=== PATIENT | male | born 1935 | race Caucasian/White ===

== ENCOUNTER 2023-08-07 19:34 | Observation (INO) | payer MEDICARE ==
[2023-08-07] MEDS ORDERED: SODIUM CHLORIDE 0.9% 500 ML 500 ML IV ONE (20:04)
--- NOTE | 2023-08-07 20:05 | ED ---
General Adult HPI - General Chief complaint: Neuro Symptoms/Deficit Stated complaint: Neuro symptoms Time Seen by Provider: 08/07/23 19:54 Source: patient, EMS, RN notes reviewed, old records reviewed Mode of arrival: EMS Limitations: no limitations - History of Present Illness Initial comments: 87-year-old male presents for evaluation of facial droop and slurred speech. Symptoms began approximately 3 hours prior and according to EMS the slurred spee ch only lasted 2 minutes. Symptoms are completely resolved at the time of arrival. The exact timing is not known by the patient and family is not available at the initial evaluation to confirm the time course. Patient himself has no complaints. No headache. No chest pain. No focal numbness or weakness. Speech is clear. No prior history of TIA or CVA. - Related Data Allergies Allergy/AdvReac Type Severity Reaction Status Date / Time No Known Allergies Allergy Verified 08/07/23 19:51 Review of Systems ROS Statement: Those systems with pertinent positive or pertinent negative responses have been documented in the HPI. ROS Other: All systems not noted in ROS Statement are negative. Past Medical History Additional Past Medical History / Comment(s): BPH History of Any Multi-Drug Resistant Organisms: None Reported Additional Past Surgical History / Comment(s): eyelids Past Psychological History: No Psychological Hx Reported Smoking Status: Former smoker Past Alcohol Use History: Occasional Past Drug Use History: None Reported General Exam Limitations: no limitations General appearance: alert, in no apparent distress Head exam: Present: atraumatic, normocephalic Eye exam: Present: normal appearance, PERRL ENT exam: Present: normal exam Neck exam: Present: normal inspection Respiratory exam: Present: normal lung sounds bilaterally. Absent: respiratory distress, wheezes Cardiovascular Exam: Present: regular rate, normal rhythm GI/Abdominal exam: Present: soft. Absent: distended, tenderness Extremities exam: Present: normal inspection, normal capillary refill Neurological exam: Present: alert, oriented X3, CN II-XII intact, other (NIH is 0). Absent: motor sensory deficit Psychiatric exam: Present: normal affect, normal mood Skin exam: Present: warm, dry, intact Course Vital Signs 08/07/23 08/07/23 08/07/23 19:44 20:30 21:00 Temperature 97.9 F Pulse Rate 74 81 Respiratory 18 Rate Blood Pressure 204/89 197/94 212/83 O2 Sat by Pulse 97 95 Oximetry Medical Decision Making - Medical Decision Making Was pt. sent in by a medical professional or institution (STEVE Qureshi, PETROLEUM ANALYST, urgent care, hospital, or custodial...) When possible be specific @ -No Did you speak to anyone other than the patient for history (EMS, parent, family, police, friend...)? What history was obtained from this source @ -No Did you review nursing and triage notes (agree or disagree)? Why? @ -I reviewed and agree with nursing and triage notes Were old charts reviewed (outside hosp., previous admission, EMS record, old EKG, old radiological studies, urgent care reports/EKG's, custodial records)? Report findings @ -No old charts were reviewed Differential Diagnosis (chest pain, altered mental status, abdominal pain women, abdominal pain men, vaginal bleeding, weakness, fever, dyspnea, syncope, headache, dizziness, GI bleed, back pain, seizure, CVA, palpatations, mental health, musculoskeletal)? @ -Differential CVA Ischemic stroke, hemorrhagic stroke, brain tumor, atypical migraine, Wernicke's encephalopathy, seizure, multiple sclerosis, meningitis, encephalitis, hypoglycemia, Guillain-Doss, electrolytes disturbance, myasthenia gravis.... This is not meant to be an all-inclusive list EKG interpreted by me (3pts min.). @ -[Sinus rhythm with PAC rate is 73, VT interval 251, QRS duration 104, QTC [address] segment elevation. X-rays interpreted by me (1pt min.). @ -None done CT interpreted by me (1pt min.). @ -[CT brain negative for intracranial hemorrhage or mass effect. U/S interpreted by me (1pt. min.). @ -None done What testing was considered but not performed or refused? (CT, X-rays, U/S, labs)? Why? @ -None What meds were considered but not given or refused? Why? @ -None Did you discuss the management of the patient with other professionals (professionals i.e. STEVE Qureshi, PETROLEUM ANALYST, lab, RT, psych nurse, nursing home social worker, shoulder boner, teacher, airfield engineer officer, major case detective)? Give summary @ -[EMH Was smoking cessation discussed for >3mins.? @ -No Was critical care preformed (if so, how long)? @ -No Were there social determinants of health that impacted care today? How? (Homelessness, low income, unemployed, alcoholism, drug addiction, transportation, low edu. Level, literacy, decrease access to med. care, long-term, rehab)? @ -No Was there de-escalation of care discussed even if they declined (Discuss DNR or withdrawal of care, Hospice)? DNR status @ -No What co-morbidities impacted this encounter? (DM, HTN, Smoking, COPD, CAD, Cancer, CVA, ARF, Chemo, Hep., AIDS, mental health diagnosis, sleep apnea, morbid obesity)? @ -None Was patient admitted / discharged? Hospital course, mention meds given and route, prescriptions, significant lab abnormalities, going to OR and other pertinent info. @87-year-old male with facial droop and slurred speech. Symptoms resolved prior to arrival. Patient's NIH is 0. CT brain negative for intracranial hemorrhage or mass effect. Patient has normal laboratory testing. He is in sinus rhythm. He remains asymptomatic with an NIH is 0 on the emergency department. He is given an aspirin. He will be admitted for TIA workup. Undiagnosed new problem with uncertain prognosis? @ [N] Drug Therapy requiring intensive monitoring for toxicity (Heparin, Nitro, Insulin, Cardizem)? @ [N] Were any procedures done? @ [N] Diagnosis/symptom? @ -TIA Acute, or Chronic, or Acute on Chronic? @ acute Uncomplicated (without systemic symptoms) or Complicated (systemic symptoms)? @ -default Side effects of treatment? @ -No Exacerbation, Progression, or Severe Exacerbation? @ -No Poses a threat to life or bodily function? How? (Chest pain, [place], [place], pneumonia, PE, COPD, DKA, ARF, appy, cholecystitis, CVA, Diverticulitis, Homicidal, Suicidal, threat to staff... and all critical care pts) @ -[yes CVA - Lab Data Result diagrams: 08/07/23 20:09 08/07/23 20:09 Lab Results 08/07/23 08/07/23 08/07/23 Range/Units 20: 20:09 20:09 WBC 6.3 (3.8-10.6) k/uL RBC 3.66 L (4.30-5.90) m/uL Hgb 12.6 L (13.0-17.5) gm/dL Hct 38.1 L (39.0-53.0) % MCV 103.9 H (80.0-100.0) fL MCH 34.5 (25.0-35.0) pg MCHC 33.2 (31.0-37.0) g/dL RDW 13.3 (11.5-15.5) % Plt Count 344 (150-450) k/uL MPV 7.7 Neutrophils % 56 % Lymphocytes % 29 % Monocytes % 9 % Eosinophils % 2 % Basophils % 0 % Neutrophils # 3.6 (1.3-7.7) k/uL Lymphocytes # 1.8 (1.0-4.8) k/uL Monocytes # 0.6 (0-1.0) k/uL Eosinophils # 0.1 (0-0.7) k/uL Basophils # 0.0 (0-0.2) k/uL Macrocytosis Slight PT 11.0 (10.0-12.5) sec INR 1.0 (<1.2) APTT 24.5 (22.0-30.0) sec Sodium 139 (137-145) mmol/L Potassium 4.7 (3.5-5.1) mmol/L Chloride 103 (98-107) mmol/L Carbon Dioxide 27 (22-30) mmol/L Anion Gap 9 mmol/L BUN 21 H (9-20) mg/dL Creatinine 0.86 (0.66-1.25) mg/dL Est GFR (CKD-EPI)AfAm 89 (>60 ml/min/1.73 sqM) Est GFR (CKD-EPI)NonAf 77 (>60 ml/min/1.73 sqM) Glucose 120 H (74-99) mg/dL Calcium 9.3 (8.4-10.2) mg/dL Total Bilirubin 0.4 (0.2-1.3) mg/dL AST 26 (17-59) U/L ALT 20 (4-49) U/L Alkaline Phosphatase 109 (38-126) U/L Creatine Kinase 36 L (55-170) U/L Troponin I (0.000-0.034) ng/mL Total Protein 6.8 (6.3-8.2) g/dL Albumin 4.0 (3.5-5.0) g/dL 08/07/23 Range/Units 20:09 WBC (3.8-10.6) k/uL RBC (4.30-5.90) m/uL Hgb (13.0-17.5) gm/dL Hct (39.0-53.0) % MCV (80.0-100.0) fL MCH (25.0-35.0) pg MCHC (31.0-37.0) g/dL RDW (11.5-15.5) % Plt Count (150-450) k/uL MPV Neutrophils % % Lymphocytes % % Monocytes % % Eosinophils % % Basophils % % Neutrophils # (1.3-7.7) k/uL Lymphocytes # (1.0-4.8) k/uL Monocytes # (0-1.0) k/uL Eosinophils # (0-0.7) k/uL Basophils # (0-0.2) k/uL Macrocytosis PT (10.0-12.5) sec INR (<1.2) APTT (22.0-30.0) sec Sodium (137-145) mmol/L Potassium (3.5-5.1) mmol/L Chloride (98-107) mmol/L Carbon Dioxide (22-30) mmol/L Anion Gap mmol/L BUN (9-20) mg/dL Creatinine (0.66-1.25) mg/dL Est GFR (CKD-EPI)AfAm (>60 ml/min/1.73 sqM) Est GFR (CKD-EPI)NonAf (>60 ml/min/1.73 sqM) Glucose (74-99) mg/dL Calcium (8.4-10.2) mg/dL Total Bilirubin (0.2-1.3) mg/dL AST (17-59) U/L ALT (4-49) U/L Alkaline Phosphatase (38-126) U/L Creatine Kinase (55-170) U/L Troponin I 0.017 (0.000-0.034) ng/mL Total Protein (6.3-8.2) g/dL Albumin (3.5-5.0) g/dL Disposition Clinical Impression: Transient cerebral ischemia Disposition: ADMITTED IP TO THIS HOSP Condition: Stable Is patient prescribed a controlled substance at d/c from ED?: No Referrals: None,Stated [REFERRING] - 1-2 days Time of Disposition: 22:06
[2023-08-07 20:46] LABS: Basophils % (A) 0 %; Eosinophils # (A) 0.1 k/uL (0-0.7); Eosinophils % (A) 2 %; HCT 38.1 % (39.0-53.0); HGB 12.6 gm/dL (13.0-17.5); Lymphocytes # (A) 1.8 k/uL (1.0-4.8); Lymphocytes % (A) 29 %; MCH 34.5 pg (25.0-35.0); MCHC 33.2 g/dL (31.0-37.0); MCV 103.9 fL (80.0-100.0); Macrocytosis Slight; Mean Platelet Volume 7.7; Monocytes # (A) 0.6 k/uL (0-1.0); Monocytes % (A) 9 %; Neutrophils # (A) 3.6 k/uL (1.3-7.7); Neutrophils % (A) 56 %; Platelet Count 344 k/uL (150-450); RBC 3.66 m/uL (4.30-5.90); RDW 13.3 % (11.5-15.5); WBC 6.3 k/uL (3.8-10.6)
--- NOTE | 2023-08-07 20:54 | CT ---
EXAMINATION TYPE: CT brain wo con DATE OF EXAM: 08/07/2023 COMPARISON: None HISTORY: ams CT DLP: 1113.[address] of the brain was performed. The ventricles, basal cisterns and sulci overlying the cerebral convexities demonstrate mild enlargem ent. There is no evidence for intracranial hemorrhage or sulcal effacement. There is decreased attenuation about the periventricular white matter and deep white matter of both c erebral hemispheres, compatible with chronic small vessel ischemia. Differential diagnosis does inclu de demyelination. No mass effects are seen.No midline shift. Osseous calvarium is intact. If symptoms persist consider MRI. IMPRESSION: 1. Age related atrophic and chronic small vessel ischemic change without acute intracranial process s een at this time.
[2023-08-07 21:01] LABS: ALT 20 U/L (4-49); AST 26 U/L (17-59); African American GFR (CKD) 89 (>60 ml/min/1.73 sqM); Alkaline Phosphatase 109 U/L (38-126); Anion Gap 9 mmol/L; Blood Urea Nitrogen 21 mg/dL (9-20); Calcium 9.3 mg/dL (8.4-10.2); Carbon Dioxide 27 mmol/L (22-30); Chloride 103 mmol/L (98-107); Creatine Kinase 36 U/L (55-170); Glucose 120 mg/dL (74-99); Non-African American GFR(CKD) 77 (>60 ml/min/1.73 sqM); Potassium 4.7 mmol/L (3.5-5.1); Sodium 139 mmol/L (137-145); Total Bilirubin 0.4 mg/dL (0.2-1.3); Total Protein 6.8 g/dL (6.3-8.2)
[2023-08-07 21:02] LABS: Partial Thromboplastin Time 24.5 sec (22.0-30.0)
[2023-08-07] MEDS ORDERED: ASPIRIN 325 MG TAB PO STA (21:56)
--- NOTE | 2023-08-07 22:00 | XR ---
EXAM: XR chest 1V portable CLINICAL INDICATION:Male, 87 years old with history of altered mental status; PHH COMPARISON: None. TECHNIQUE: Chest single view. FINDINGS: Lines/tubes/devices: No indwelling lines. EKG leads and other extrinsic structures over the chest. Cardiomediastinum: Cardiac silhouette appears mildly enlarged. Atherosclerotic calcifications of the aorta. Mediastinal silhouette otherwise unremarkable. Vasculature: Mild central congestion. Mildly increased interstitial markings can be related to conge stion or infiltrates. Lungs/pleura: No consolidation, sizeable effusion, or visible pneumothorax. Bones/soft tissues: Bony thorax appears grossly intact with degenerative changes of the spine and shoulders noted. Region al soft tissues appear unremarkable. IMPRESSION: Cardiomegaly with mild pulmonary vascular congestion and edema. Correlate clinically for CHF.
[2023-08-07] MEDS: SODIUM CHLORIDE 0.9% 1,000 ML IV SCH (22:16)
--- NOTE | 2023-08-08 07:15 | US ---
EXAMINATION TYPE: US carotid duplex BILAT DATE OF EXAM: 08/07/2023 COMPARISON: NONE CLINICAL INDICATION: Male, 87 years old with history of Stenosis; Altered mental status TECHNIQUE: Carotid duplex ultrasound examination. Indirect Doppler criteria was utilized. 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 Increased velocities bilateral ICA's and l eft ECA IMPRESSION: 50-69% diameter reduction right ICA. Criteria for Assigning % of Stenosis / Diameter reduction (Estimation based on the indirect measurements of the internal carotid artery velocities (ICA PSV). 1. Normal (no stenosis)=ICA PSV < 125 cm/s: ratio < 2.0: ICA EDV<40 cm/s. 2. Less than 50% stenosis=ICA PSV < 125 cm/s: ratio < 2.0: ICA EDV<40 cm/s. 3. 50 to 69% stenosis=ICA PSV of 125 to 230 cm/s: ration 2.0 ? 4.0: ICA EDV 40-100 cm/s. 4. Greater than 70% stenosis to near occlusion= ICA PSV > 230 cm/s: ratio > 4.0: ICA EDV > 100 cm/s. 5. Near occlusion= ICA PSV velocities may be low or undetectable: variable ratio and ICA EDV. 6. Total occlusion=unable to detect flow.
[2023-08-08] MEDS: ASPIRIN 325 MG TAB PO SCH (08:16)
[2023-08-08] MEDS: hydrALAZINE HCL 20 MG/ML 1 ML VIAL IVP PRN ×2 (09:38→19:33)
[2023-08-08 09:51] LABS: Chol/HDL Ratio 2.71 Ratio; LDL Cholesterol,Calculated 77.4 mg/dL (0.0-131.0)
[2023-08-08] MEDS ORDERED: LABETALOL 5 MG/ML VIAL MDV IVP STA (10:49)
[2023-08-08] MEDS: amLODIPine 2.5 MG TAB PO SCH (12:01)
--- NOTE | 2023-08-08 13:15 | P.HPIM ---
History of Present Illness H&P Date: 08/08/23 History of present illness; patient is a 87 year old gentleman with no signific ant past medical history brought to the ER for slurred speech and facial droop. According to the EMS records, patient's symptoms started 3 hours prior to arrival of EMS and by the time EMS arrived, symptoms lasted a few minutes and totally resolved. There was no documented weakness of any extremity. No loss of sensations in any extremity. Denied any recent fall. Denied any palpitation. There was no complaint of lightheadedness or dizziness. No complaint of loss of consciousness. EMS brought the patient to the ER Initial lab work done in the ER showed WBC 6.3, hemoglobin 12.6, platelet count 344, sodium 139 potassium 4.7, BUN 21, creatinine 0.86, AST 26, ALT 20, troponin 0.017 EKG done in the ER heart rate of 73, normal sinus rhythm, no T-wave inversion or ST segment depression in leads Chest x-ray done in the ER showed cardiomegaly with mild pulmonary vascular congestion and edema CT brain done showed age-related chronic small vessel ischemic change without acute cranial process Patient admitted to medicine service REVIEW OF SYSTEMS: CONSTITUTIONAL: No fever, no malaise, no fatigue. HEENT: No recent visual problems or hearing problems. Denied any sore throat. CARDIOVASCULAR: No chest pain, orthopnea, PND, no palpitations, no syncope. PULMONARY: No shortness of breath, no cough, no hemoptysis. GASTROINTESTINAL: No diarrhea, no nausea, no vomiting, no abdominal pain. NEUROLOGICAL: As documented above HEMATOLOGICAL: Denies any bleeding or petechiae. GENITOURINARY: Denies any burning micturition, frequency, or urgency. MUSCULOSKELETAL/RHEUMATOLOGICAL: Denies any joint pain, swelling, or any muscle pain. ENDOCRINE: Denies any polyuria or polydipsia. The rest of the 14-point review of systems is negative. PHYSICAL EXAMINATION: GENERAL: The patient is alert and oriented x3, not in any acute distress. Well developed, well nourished. HEENT: Pupils are round and equally reacting to light. EOMI. No scleral icterus. No conjunctival pallor. Normocephalic, atraumatic. No pharyngeal erythema. No thyromegaly. CARDIOVASCULAR: S1 and S2 present. No murmurs, rubs, or gallops. PULMONARY: Chest is clear to auscultation, no wheezing or crackles. ABDOMEN: Soft, nontender, nondistended, normoactive bowel sounds. No palpable organomegaly. MUSCULOSKELETAL: No joint swelling or deformity. EXTREMITIES: No cyanosis, clubbing, or pedal edema. NEUROLOGICAL: Gross neurological examination did not reveal any focal deficits. SKIN: No rashes. Assessment and plan TIA Hypertension Monitor vital signs Monitor CBC Monitor CMP Continue telemetry monitoring Continue neuro checks Ordered 2-D echo Ordering MRI brain Daily aspirin Lipid panel HbA1c levels ordered TSH levels ordered Consult neurology Labs and medication were reviewed.. Continue same treatment. Continue with symptomatic treatment. Resume home medication. Monitor labs and vitals. DVT and GI prophylaxis. Further recommendations as per clinical course of the patient Dictation was produced using [employer] dictation software. please excuse any grammatical, word or spelling errors. Past Medical History Additional Past Medical History / Comment(s): BPH History of Any Multi-Drug Resistant Organisms: None Reported Additional Past Surgical History / Comment(s): cataract surgery, eyelids Past Anesthesia/Blood Transfusion Reactions: No Reported Reaction Past Psychological History: No Psychological Hx Reported Smoking Status: Former smoker Past Alcohol Use History: Occasional Past Drug Use History: None Reported Medications and Allergies Home Medications Medication Instructions Recorded Confirmed Type Acetaminophen Tab [Tylenol Tab] 1,000 mg PO BID 08/07/23 08/07/23 History Oxybutynin ER [Ditropan XL] 15 mg PO HS 08/07/23 08/07/23 History Allergies Allergy/AdvReac Type Severity Reaction Status Date / Time No Known Allergies Allergy Verified 08/07/23 22:05 Physical Exam Vitals: Vital Signs Temp Pulse Pulse Resp BP BP Pulse Ox 08/08/23 08:16 97 08/08/23 08:13 57 L 15 199/88 95 08/08/23 04:00 98.2 F 18 165/83 98 08/08/23 01:44 18 08/07/23 23:30 54 L 18 164/73 08/07/23 23:00 66 18 162/91 95 08/07/23 22:30 64 18 171/85 97 08/07/23 22:00 72 18 173/89 97 08/07/23 21:30 71 18 199/89 95 08/07/23 21:00 81 212/83 95 08/07/23 20:30 197/94 08/07/23 19:44 97.9 F 74 18 204/89 97 Intake and Output 08/07/23 08/08/23 08/08/23 22:59 06:59 14:59 Other: Voiding Method Toilet Toilet # Voids 1 Weight 72.575 kg 72.575 kg Results CBC & Chem 7: 08/07/23 20:09 08/07/23 20:09 Labs: Abnormal Lab Results - Last 24 Hours (Table) 08/07/23 08/07/23 Range/Units 20:09 20:09 RBC 3.66 L (4.30-5.90) m/uL Hgb 12.6 L (13.0-17.5) gm/dL Hct 38.1 L (39.0-53.0) % MCV 103.9 H (80.0-100.0) fL BUN 21 H (9-20) mg/dL Glucose 120 H (74-99) mg/dL Creatine Kinase 36 L (55-170) U/L Thrombosis Risk Factor Assmnt - Choose All That Apply Any of the Below Risk Factors Present?: No Other Risk Factors: Yes Each Risk Factor Represents 3 Points: Age 75 years or older Thrombosis Risk Factor Assessment Total Risk Factor Score: 3 Thrombosis Risk Factor Assessment Level: Moderate Risk
--- NOTE | 2023-08-08 13:35 | MR ---
EXAMINATION TYPE: MR brain wo con DATE OF EXAM: 08/08/2023 1:28 PM COMPARISON: NONE HISTORY: AMS, neuro deficit. FINDINGS: The ventricles, basal cisterns and sulci overlying the cerebral convexities are mildly to moderately enlarged. There is evidence of mild periventricular white matter ischemic demyelination. Remote deep white matter insults are also noted. No acute edema is seen on diffusion weighted imaging. There is no evidence for midline shift or mass effect. Acute intracranial hemorrhage or extra-axial collection is not evident. The paranasal sinuses and mastoid air cells are well-aerated. IMPRESSION: Age-related atrophic and chronic small vessel ischemic change. No acute intracranial process at this time.
--- NOTE | 2023-08-08 15:53 | CA ---
Transthoracic Echo Report Name: Narinder Jewell Age: 87 Gender: M : 1935 Exam Date: 08/08/2023 09:38 Exam Location: [facility] Ht (in): 67 Wt (lb): 160 Ordering Physician: Shai Ba MD Attending/Referring Phys: [id number], Jesenia Psych Therapist Eva Vences RDCS Procedure CPT: Indications: chf Cardiac Hx: Technical Quality: Good Contrast 1: Total Dose (mL): Contrast 2: Total Dose (mL): MEASUREMENTS (Male / Female) Normal Values 2D ECHO LV Diastolic Diameter PLAX 4.0 cm 4.2 - 5.9 / 3.9 - 5.3 cm LV Systolic Diameter PLAX 2.6 cm IVS Diastolic Thickness 1.5 cm 0.6 - 1.0 / 0.6 - 0.9 cm LVPW Diastolic Thickness 1.5 cm 0.6 - 1.0 / 0.6 - 0.9 cm LV Relative Wall Thickness 0.7 RV Internal Dim ED PLAX 3.3 cm LVOT Diameter 2.4 cm LA Systolic Diameter LX 3.8 cm 3.0 - 4.0 / 2.7 - 3.8 cm LV Diastolic Volume MOD 4C 63.4 cm??? LV Systolic Volume MOD 4C 29.4 cm??? LV Ejection Fraction MOD 4C 53.6 % LV Cardiac Index MOD 4C 1077.5 cm???/min???m??? LV Diastolic Length 4C 8.8 cm LV Systolic Length 4C 7.7 cm LV Diastolic Volume MOD 2C 89.3 cm??? LV Systolic Volume MOD 2C 33.7 cm??? LV Ejection Fraction MOD 2C 62.2 % LV Cardiac Index MOD 2C 1761.8 cm???/min???m??? LV Diastolic Length 2C 9.6 cm LV Systolic Length 2C 7.9 cm LA Volume 61.4 cm??? 18 - 58 / 22 - 52 cm??? LA Volume Index 33.0 cm???/m??? 16 - 28 cm???/m??? M-MODE Aortic Root Diameter MM 3.3 cm MV E Point Septal Separation 1.2 cm AV Cusp Separation MM 1.4 cm DOPPLER AV Peak Velocity 276.7 cm/s AV Peak Gradient 30.6 mmHg AV Mean Velocity 200.4 cm/s AV Mean Gradient 17.9 mmHg AV Velocity Time Integral 50.8 cm LVOT Peak Velocity 104.6 cm/s LVOT Peak Gradient 4.4 mmHg AV Area Cont Eq pk 1.7 cm??? MV Area PHT 2.2 cm??? Mitral E Point Velocity 94.9 cm/s Mitral A Point Velocity 144.1 cm/s Mitral E to A Ratio 0.7 MV Deceleration Time 337.9 ms MV E' Velocity 5.6 cm/s Mitral E to MV E' Ratio 16.8 TR Peak Velocity 287.6 cm/s TR Peak Gradient 33.1 mmHg Right Ventricular Systolic Press 36.4 mmHg FINDINGS Left Ventricle Left ventricular ejection fraction is estimated at 55-60 %. Normal left ventricular wall motion. Moderate concentric left ventricular hypertrophy. Right Ventricle Mild right ventricular dilatation. Mild pulmonary hypertension. Right Atrium Normal right atrial size. Left Atrium Mildly increased left atrial volume. Mitral Valve Rheumatic mitral valve. Moderate mitral annular calcification. No mitral regurgitation. Aortic Valve Trileaflet aortic valve. Moderate Aortic valve sclerosis. Mild aortic stenosis with a peak gradient of 31 mmHg and a mean gradient of 18 mmHg. Area 1.7 cm2 Tricuspid Valve Structurally normal tricuspid valve. Mild tricuspid regurgitation. Pulmonic Valve Structurally normal pulmonic valve. Mild pulmonic regurgitation. Pericardium No pericardial effusion. Aorta Normal size aortic root and proximal ascending aorta. CONCLUSIONS Normal LV systolic function was moderate LVH Aortic sclerosis with mild stenosis Previewed by: Dr. Ney Bowman MD (Electronically Signed) Final Date: 08 August 2023 15:52
--- NOTE | 2023-08-08 18:01 | P.CNNES ---
History of Present Illness Consult date: 08/08/23 Requesting physician: Shai Ba Reason for Consult: TIA History of Present Illness: Patient is a 87-year-old right-handed male came to the hospital by ambulance yesterday at 7:34 PM for strokelike symptoms. Patient states that last night after eating dinner, he was sitting with his , when he notices his face was "out of shape", which he described as left-sided droopy. He also noticed that his speech was slurred. The facial droop lasted for about 30-45 minutes that is the speech slurring lasted for about 1 hour. He noticed blood pressure was high, which has never occurred before. As per EMS flow sheet, when they arrive for strokelike symptoms, patient's on the scene mentioned that he shouldn't has right-sided facial droop and slurred speech. Patient was not exhibiting any strokelike symptoms when EMS arrived. Patient's mentioned that the facial droop lasted for about 2 hours in the slurred speech lasted for 2 minutes. On EMS evaluation, patient was alert and oriented 4 with GCS of 15. Patient mentioned that he was aware that he was having deficits earlier but feels perfectly fine. Patient's vitals at the scene was blood pressure 208/86, pulse rate 67 respiration 18, situation and 7%. Repeat blood pressure 204/89. Vitals on arrival blood pressure 204/89, 197/94, 212/83, pulse rate 74 temperature 97.9. Blood test shows normal WBC, hemoglobin 12.6 with elevated MC V 103.9. PT/PTT normal, CMP normal. CK normal. Troponin negative. CT head showed age-related atrophic and chronic small vessel ischemic changes without acute intracranial process. EKG shows sinus rhythm with first-degree AV block. Chest x-ray revealed cardiomegaly with mild pulmonary vascular congestion and edema. Correlate clinically for CHF. Home medications include oxybutynin, Tylenol. Patient states that he used to take aspirin 81 mg daily for a long time, but he stopped taking it about a year ago. Patient does not take any antiplatelet medication at this time. Patient denies hypertension, diabetes or high cholesterol. Patient quit smoking 35-40 years ago. She smoked half pack per day for 4-5 years. Review of Systems Constitutional: Denies chills, Denies fever Eyes: denies blurred vision, denies diplopia, denies pain Ears: bilateral: decreased hearing (Uses aids), deny: ear discharge Ears, nose, mouth and throat: Denies headache, Denies sore throat Cardiovascular: Denies chest pain, Denies shortness of breath Respiratory: Denies cough, Denies excessive sputum Gastrointestinal: Denies abdominal pain, Denies diarrhea, Denies nausea, Denies vomiting Genitourinary: Reports urinary frequency (Urgency some), Denies incontinence Musculoskeletal: Denies low back pain, Denies neck pain Integumentary: Denies pruritus, Denies rash Neurological: Reports as per HPI Psychiatric: Denies anxiety, Denies depression Hematologic/Lymphatic: Reports easy bruising, Denies easy bleeding Past Medical History Additional Past Medical History / Comment(s): BPH History of Any Multi-Drug Resistant Organisms: None Reported Additional Past Surgical History / Comment(s): cataract surgery, eyelids Past Anesthesia/Blood Transfusion Reactions: No Reported Reaction Past Psychological History: No Psychological Hx Reported Smoking Status: Former smoker Past Alcohol Use History: Occasional Past Drug Use History: None Reported Medications and Allergies Home Medications Medication Instructions Recorded Confirmed Type Acetaminophen Tab [Tylenol] 1,000 mg PO BID 08/07/23 08/07/23 History Oxybutynin ER [Ditropan XL] 15 mg PO HS 08/07/23 08/07/23 History Aspirin 81 mg PO DAILY 30 Days #30 tab 08/09/23 Rx Atorvastatin [Lipitor] 20 mg PO HS #30 tab 08/09/23 Rx Clopidogrel [Plavix] 75 mg PO DAILY 21 Days #21 tab 08/09/23 Rx amLODIPine [Norvasc] 5 mg PO DAILY 30 Days #30 tab 08/09/23 Rx Allergies Allergy/AdvReac Type Severity Reaction Status Date / Time No Known Allergies Allergy Verified 08/07/23 22:05 Physical Examination - Vital Signs Vital Signs: Vital Signs Temp Pulse Resp BP BP Pulse Ox 08/08/23 04:00 98.2 F 18 165/83 98 08/08/23 01:44 18 08/07/23 23:30 54 L 18 164/73 08/07/23 23:00 66 18 162/91 95 08/07/23 22:30 64 18 171/85 97 08/07/23 22:00 72 18 173/89 97 08/07/23 21:30 71 18 199/89 95 11/24/23 21:00 81 212/83 95 08/07/23 20:30 197/94 08/07/23 19:44 97.9 F 74 18 204/89 97 Intake and Output 08/07/23 08/08/23 08/08/23 22:59 06:59 14:59 Other: Voiding Method Toilet # Voids 1 Weight 72.575 kg 72.575 kg Patient is an elderly male, in no acute distress. Patient is alert awake oriented to time place and person. Speech and language functions are normal. Patient can name and repeat very well. No aphasia or dysarthria. Attention, concentration and fund of knowledge is adequate. On cranial nerve examination, pupils are equal, round and reacting to light, visual carrillo are full on confrontation, with no neglect on double simultaneous stimulation. Extraocular muscles are intact with no nystagmus. Face is symmetric, tongue protrudes to the midline. Palatal elevation and sensation normal, hearing is decreased and uses hearing aids and shoulder shrug normal, facial sensation normal. On muscle strength testing, there is no pronator drift and the strength is normal in arms and legs distally and proximally. Deep tendon reflexes are (right/left) biceps 2+/2, brachioradialis 2+/2, knees 2/2, ankles 1+/1+ and plantars are downgoing bilaterally. Sensory to touch is equal with no neglect on double simultaneous stimulation. Cerebellar function showed no ataxia for [id number] testing. No dysdiadochokinesia. No ataxia for [id number] testing on either side. Tone and bulk of muscles normal. Gait deferred.. On general examination, there is no carotid bruit or murmur, S1-S2 audible. Chest is clear on consultation. Abdomen is soft nontender. No organomegaly, bowel sounds present. Peripheral pulses are present. No peripheral edema. Results - Laboratory Findings CBC and BMP: 08/07/23 20:09 08/07/23 20:09 Abnormal Lab Findings: Abnormal Labs 08/07/23 08/07/23 20:09 20:09 RBC 3.66 L Hgb 12.6 L Hct 38.1 L MCV 103.9 H BUN 21 H Glucose 120 H Creatine Kinase 36 L Assessment and Plan Assessment: * Probable TIA, manifesting with transient slurred speech and left facial droop, this seems to have resolved within 1-2 hours. * New onset hypertension, with hypertensive urgency * Dyslipidemia * X tobacco use Plan: * MRI of the brain without contrast revealed age-related atrophic and chronic small vessel ischemic change. No acute or subacute stroke. * 2-D echo revealed moderate concentric LVH, normal left-ventricular systolic function with EF 55-60%, mildly increased left atrial volume. Aortic sclerosis with moderate stenosis. * Carotid Doppler, revealed 50-69% diameter reduction right ICA. Antegrade flow in both vertebral arteries. * Right ICA stenosis appears symptomatic. We will check CTA of head and neck. * Fasting a.m. lipid panel with cholesterol 147, LDL 77, HDL 54 and triglyceri miladis 77. Start Lipitor 20 mg at bedtime. * Hemoglobin A1c 5.5 * Gradually optimize blood pressure to normotensive level. * Patient was not taking any antiplatelet medication at home. Patient has been started on aspirin [address] patient on Plavix 75 mg and aspirin 81 mg for 21 days, then stop Plavix and continue aspirin indefinitely. * Neuro checks. * Telemetry monitoring rule out any arrhythmia * DVT prophylaxis: Heparin 5000 units subcu every 8 hours * Neurologically clear for discharge in a.m., if the CTA comes back not significant, and blood pressure comes under control. * Neurology will continue to follow. Thank you for the consult. Addendum: CTA of head revealed no intracranial major vascular occlusion or significant stenosis, or sizable aneurysm. CTA of the neck showed no dissection. Atherosclerotic disease is present with mild to moderate mixed plaque in the proximal right ICA causing 50% diameter stenosis and moderate mostly calcified plaque at the proximal left ICA causing less than 50% diameter stenosis. Partially seen structures extending medial to the shoulders, likely representing moderate sized joint effusion. Thyroid nodules. These later two findings to be addressed by IM. Neurologically clear for discharge.
[2023-08-08] MEDS: CLOPIDOGREL 75 MG TAB PO SCH (20:35)
[2023-08-08] MEDS ORDERED: ATORVASTATIN 20 MG TAB PO SCH (21:00)
[2023-08-08] MEDS ORDERED: OXYBUTYNIN 15 MG TAB.ER.24 PO SCH (21:00)
[2023-08-08] MEDS: SODIUM CHLORIDE 0.9% 1,000 ML IV SCH (22:01)
--- NOTE | 2023-08-08 23:48 | CT ---
EXAMINATION TYPE: CT angio head neck DATE OF EXAM: 08/08/2023 6:29 PM COMPARISON: Carotid ultrasound 08/07/2023. Also refer to MR brain from 08/08/2023 CLINICAL INDICATION:Male, 87 years old with history of tia; PHH, Right ICA stenosis TECHNIQUE: Axially acquired helical CT angiogram of the head and neck was obtained with contrast. Axi al images are supplemented with 3D reconstructions which were post-processed at an independent [facility]st [facility]. NASCET criteria used. Contrast used: 70ml mL of Isovue 300 with IV Contrast, Oral contrast used: None. CT DLP: 408.7 mGycm, Automated exposure control for dose reduction was used. FINDINGS: CTA Neck: A 3 vessel aortic arch is shown. Atherosclerotic plaque is present in the aortic arch and at the origin of the branch vessels without significant stenosis. No evidence of dissection flap. Th ere is no significant atherosclerotic plaque at the origins of the vertebral arteries. The right vert ebral is dominant. Right carotid system: Mild/moderate mixed plaque at the proximal right subclavian artery without sign ificant stenosis. Additional mild scattered disease more distally. Right CCA is patent. At the caroti d bifurcation and extending into the proximal ICA, there is mixed soft and calcified crescentic plaqu e which maximally narrows the lumen to 3.2 mm. The more distal vessel is patent and tortuous and has a diameter of 6.2 mm. This represents a 50% ICA stenosis. A couple of small calcified plaques in the mid to distal cervical ICA without significant associated stenosis. Left carotid system: Mostly calcified plaque in the proximal to mid subclavian artery without signifi cant stenosis. Some mixed plaque in the axillary artery is seen without significant stenosis. Left CC A is patent with mild mixed disease. There is moderate mostly calcified plaque at the carotid bifurca tion and proximal ICA maximally narrowing the proximal ICA lumen to 4.2 mm. The more distal ICA measu res 5.5 mm. This represents less than 50% ICA stenosis. Distal cervical ICA is tortuous but patent. Other: Included lung apices show scarring/senescent changes without evidence of acute infiltrate. No pneumothorax. Airway appears patent. Partially seen in both axilla are lobulated low-attenuation stru ctures extending medial to the shoulders, likely representing moderate-sized joint effusions. Thyroid shows hypodense nodules on the right measuring up to 0.8 cm superiorly and 1.3 cm inferiorly. Nonenl arged nodes are seen in the neck. Right IJ appears well opacified throughout. The left IJ is opacifie d at the skull base but slowly becomes less opacified more inferiorly; this is judged more likely due to contrast timing and preferential flow on the right, rather than true venous pathology. No acute o sseous abnormality is seen. There is moderate multilevel degenerative disc disease throughout the cer vical spine with mild/moderate canal and neural foraminal stenoses suggested at each level from C3-C4 through C6-C7. CTA Head: Intracranial ICAs are patent. Mild atherosclerotic disease in the siphons without signific ant stenosis suggested. Bifurcations are patent. MCAs, ACAs, small anterior communicating artery appe ar patent without significant narrowing, major vascular occlusion, or aneurysm detected. The left UNIT CONTROLLER essentially demonstrates a origin, largely supplied from the anterior circulation. There may b e a tiny contribution from the basilar artery. On the right, the UNIT CONTROLLER appears largely supplied from th e basilar, with also contribution from the right posterior communicating artery. Basilar artery appea rs patent without evidence of significant stenosis or aneurysm. Intracranial left vertebral artery is patent with mild atherosclerotic disease, and appears to essentially terminate as the PICA. The paula nant right vertebral artery is patent intracranially, with coarse calcification in its midportion wit hout significant stenosis seen. This then forms the basilar artery. The dural venous sinuses appear to opacify normally without evidence to suggest dural venous sinus th rombosis. Imaged brain shows no definite abnormal enhancements or mass. Mild/moderate atrophy and chronic micro vascular ischemic changes. Mild enlargement of the ventricles/CSF spaces, commensurate with brain vol ume loss. No intracranial hemorrhage or midline shift. Radiodensities associated with the anterior gl obes suggests prior ophthalmologic surgery. Skull appears intact. The visualized paranasal sinuses an d mastoid air cells are clear. IMPRESSION: CTA neck: 1. No dissection or pseudoaneurysm detected in the carotid or vertebral arteries in the neck. 2. Atherosclerotic disease is present, with mild/moderate mixed plaque at the proximal right ICA cau sing 50% diameter stenosis, and moderate mostly calcified plaque at the proximal left ICA causing les s than 50% diameter stenosis. 3. Partially seen structures extending medial to the shoulders, likely representing moderate-sized j oint effusions. 4. Small hypodense thyroid nodules, could be further assessed with outpatient TFTs and ultrasound. 5. Moderate multilevel cervical spondylosis. CTA head: No intracranial major vascular occlusion or significant stenosis, or sizable aneurysm detected in the limits of CTA.
[2023-08-09 03:20] VITALS: TEMP 97.4
[2023-08-09] MEDS: CLOPIDOGREL 75 MG TAB PO SCH (08:21)
[2023-08-09] MEDS: amLODIPine 2.5 MG TAB PO SCH (08:21)
[2023-08-09] MEDS: ASPIRIN 325 MG TAB PO SCH (08:21)
[2023-08-09 08:34] VITALS: RESP 16
[2023-08-09] MEDS ORDERED: hydrALAZINE HCL 10 MG TAB PO SCH (11:45)
--- NOTE | 2023-08-09 12:43 | P.PN ---
Subjective Progress Note Date: 08/09/23 patient is a 87 year old gentleman with no significant past medical history brought to the ER for slurred speech and facial droop. According to the EMS records, patient's symptoms started 3 hours prior to arrival of EMS and by the time EMS arrived, symptoms lasted a few minutes and totally resolved. There was no documented weakness of any extremity. No loss of sensations in any extremity. Denied any recent fall. Denied any palpitation. There was no complaint of lightheadedness or dizziness. No complaint of loss of consciousness. EMS brought the patient to the ER Initial lab work done in the ER showed WBC 6.3, hemoglobin 12.6, platelet count 344, sodium 139 potassium 4.7, BUN 21, creatinine 0.86, AST 26, ALT 20, troponin 0.017 EKG done in the ER heart rate of 73, normal sinus rhythm, no T-wave inversion or ST segment depression in leads Chest x-ray done in the ER showed cardiomegaly with mild pulmonary vascular congestion and edema CT brain done showed age-related chronic small vessel ischemic change without acute cranial process Patient admitted to medicine service 08/09. Patient seen and examined. CT head and neck done showed no dissection or pseudoaneurysm. Atherosclerotic disease with mildmoderate plaque at the proximal right ICA causing 50 percent stenosis and moderate plaque at left ICA causing less than 50% stenosis.MRI of the brain without contrast revealed age- related atrophic and chronic small vessel ischemic change. No acute or subacute stroke. 2-D echo revealed moderate concentric LVH, normal left-ventricular systolic function with EF 55-60%, mildly increased left atrial volume. Aortic sclerosis with moderate stenosis. Patient blood pressure is elevated. REVIEW OF SYSTEMS: CONSTITUTIONAL: No fever, no malaise,. CARDIOVASCULAR: No chest pain, no palpitations, no syncope. PULMONARY: No shortness of breath, no cough, GASTROINTESTINAL: No diarrhea, no nausea, no vomiting, no abdominal pain. NEUROLOGICAL: No headaches, no weakness, PHYSICAL EXAMINATION: GENERAL: The patient is alert and oriented x3, not in any acute distress. Well developed, well nourished. HEENT: Pupils are round and equally reacting to light. EOMI. No scleral icterus. No conjunctival pallor. Normocephalic, atraumatic. No pharyngeal erythema. No thyromegaly. CARDIOVASCULAR: S1 and S2 present. No murmurs, rubs, or gallops. PULMONARY: Chest is clear to auscultation, no wheezing or crackles. ABDOMEN: Soft, nontender, nondistended, normoactive bowel sounds. No palpable organomegaly. MUSCULOSKELETAL: No joint swelling or deformity. EXTREMITIES: No cyanosis, clubbing, or pedal edema. NEUROLOGICAL: Gross neurological examination did not reveal any focal deficits. SKIN: No rashes. Assessment and plan TIA Hypertensive emergency Monitor vital signs Monitor CBC Monitor CMP Continue telemetry monitoring Continue neuro checks CT head and neck done showed no dissection or pseudoaneurysm. Atherosclerotic disease with mildmoderate plaque at the proximal right ICA causing 50 percent stenosis and moderate plaque at left ICA causing less than 50% stenosis.MRI of the brain without contrast revealed age-related atrophic and chronic small vessel ischemic change. No acute or subacute stroke. 2-D echo revealed moderate concentric LVH, normal left-ventricular systolic function with EF 55-60%, mildly increased left atrial volume. Aortic sclerosis with moderate stenosis. Continue dual antiplatelet therapy with aspirin and Plavix for 21 days followed by aspirin indefinitely Continue Norvasc 2.5 daily, hydralazine 10 mg 3 times daily Lipid panel HbA1c levels 5.5 Neurology following Labs and medication were reviewed.. Continue same treatment. Continue with symptomatic treatment. Resume home medication. Monitor labs and vitals. DVT and GI prophylaxis. Further recommendations as per clinical course of the patient Dictation was produced using [employer] dictation software. please excuse any grammatical, word or spelling errors. Objective - Vital Signs Vital signs: Vital Signs Temp 97.4 F L 08/09/23 03:18 Pulse 67 08/09/23 08:00 Resp 16 08/09/23 08:00 BP 109/41 08/09/23 08:00 Pulse Ox 95 08/09/23 08:00 FiO2 Intake & Output 08/08/23 08/09/23 08/09/23 18:59 06:59 18:59 Intake Total 240 780 Balance 240 780 Intake: Oral 240 780 Other: Voiding Method Toilet Toilet # Voids 3 - Labs CBC & Chem 7: 08/07/23 20:09 08/07/23 20:09
[2023-08-09 13:45] VITALS: BP 142/80; PULSE 93
--- NOTE | 2023-08-09 14:23 | P.DS ---
Providers Date of admission: 08/07/23 22:01 Expected date of discharge: 08/09/23 Attending physician: Rubia Acuña Consults: 08/07/23 22:02 Consult Physician Routine Consulting Provider: Isreal Do Consult Reason/Comments: TIA Do you want consulting provider notified?: Yes Primary care physician: [facility] Course: Discharge diagnoses; TIA Hypertensive emergency Hospital course; patient is a 87 year old gentleman with no significant past medical history brought to the ER for slurred speech and facial droop. According to the EMS records, patient's symptoms started 3 hours prior to arrival of EMS and by the time EMS arrived, symptoms lasted a few minutes and totally resolved. There was no documented weakness of any extremity. No loss of sensations in any extremity. Denied any recent fall. Denied any palpitation. There was no complaint of lightheadedness or dizziness. No complaint of loss of consciousness. EMS brought the patient to the ER Initial lab work done in the ER showed WBC 6.3, hemoglobin 12.6, platelet count 344, sodium 139 potassium 4.7, BUN 21, creatinine 0.86, AST 26, ALT 20, troponin 0.017 EKG done in the ER heart rate of 73, normal sinus rhythm, no T-wave inversion or ST segment depression in leads Chest x-ray done in the ER showed cardiomegaly with mild pulmonary vascular congestion and edema CT brain done showed age-related chronic small vessel ischemic change without acute cranial process Patient admitted to medicine service 08/09. Patient seen and examined. CT head and neck done showed no dissection or pseudoaneurysm. Atherosclerotic disease with mildmoderate plaque at the proximal right ICA causing 50 percent stenosis and moderate plaque at left ICA causing less than 50% stenosis.MRI of the brain without contrast revealed age- related atrophic and chronic small vessel ischemic change. No acute or subacute stroke. 2-D echo revealed moderate concentric LVH, normal left-ventricular systolic function with EF 55-60%, mildly increased left atrial volume. Aortic sclerosis with moderate stenosis. Patient blood pressure is elevated. Dose of Norvasc increased to 5 mg daily Discussed with neurology, they cleared the patient for discharge PHYSICAL EXAMINATION: GENERAL: The patient is alert and oriented x3, not in any acute distress. Well developed, well nourished. HEENT: Pupils are round and equally reacting to light. EOMI. No scleral icterus. No conjunctival pallor. Normocephalic, atraumatic. No pharyngeal erythema. No thyromegaly. CARDIOVASCULAR: S1 and S2 present. No murmurs, rubs, or gallops. PULMONARY: Chest is clear to auscultation, no wheezing or crackles. ABDOMEN: Soft, nontender, nondistended, normoactive bowel sounds. No palpable organomegaly. MUSCULOSKELETAL: No joint swelling or deformity. EXTREMITIES: No cyanosis, clubbing, or pedal edema. NEUROLOGICAL: Gross neurological examination did not reveal any focal deficits. SKIN: No rashes. Dictation was produced using [employer] dictation software. please excuse any grammatical, word or spelling errors. Patient Condition at Discharge: Stable Plan - Discharge Summary Discharge Rx Participant: No New Discharge Prescriptions: New Aspirin 81 mg PO DAILY 30 Days #30 tab amLODIPine [Norvasc] 5 mg PO DAILY 30 Days #30 tab Atorvastatin [Lipitor] 20 mg PO HS #30 tab Clopidogrel [Plavix] 75 mg PO DAILY 21 Days #21 tab Continue Oxybutynin ER [Ditropan XL] 15 mg PO HS Acetaminophen Tab [Tylenol] 1,000 mg PO BID Discharge Medication List Acetaminophen Tab [Tylenol] 1,000 mg PO BID 08/07/23 [History] Oxybutynin ER [Ditropan XL] 15 mg PO HS 08/07/23 [History] Aspirin 81 mg PO DAILY 30 Days #30 tab 08/09/23 [Rx] Atorvastatin [Lipitor] 20 mg PO HS #30 tab 08/09/23 [Rx] Clopidogrel [Plavix] 75 mg PO DAILY 21 Days #21 tab 08/09/23 [Rx] amLODIPine [Norvasc] 5 mg PO DAILY 30 Days #30 tab 08/09/23 [Rx] Follow up Appointment(s)/Referral(s): None,Stated [REFERRING] - 1-2 days Celestino Sampson MD [STAFF PHYSICIAN] - 1 Week Discharge Disposition: HOME SELF-CARE
== END 2023-08-09 15:30 | disposition home or self-care (01) ==
LOC: EC 19:34 → 3SCARD 22:01
PROVIDERS: ADMIT Hospitalist; ATTEND Hospitalist
DX: G45.9 Transient cerebral ischemic attack, unspecified (principal); I16.1 Hypertensive emergency; I11.9 Hypertensive heart disease without heart failure; I44.0 Atrioventricular block, first degree; E78.5 Hyperlipidemia, unspecified; I35.0 Nonrheumatic aortic (valve) stenosis; N40.0 Benign prostatic hyperplasia without lower urinary tract symptoms; R09.89 Other specified symptoms and signs involving the circulatory and respiratory systems; R60.9 Edema, unspecified; Z79.82 Long term (current) use of aspirin; Z79.02 Long term (current) use of antithrombotics/antiplatelets; Z79.899 Other long term (current) drug therapy; Z87.891 Personal history of nicotine dependence; Z98.49 Cataract extraction status, unspecified eye; Z98.890 Other specified postprocedural states
CPT/HCPCS: 96376; 96374; 96375; 99285; 36415; 94760; 93005; 93306; 80061; 80053; 84443; 82550; 84484; 85025; 85610; 85730; 83036; 71045; 93880; 70496; 70450; 70498; 70551; G0378 ×3; J0360; Q9967; J1920